=== PATIENT | female | born 1965 | race Caucasian/White ===

== ENCOUNTER → 2019-05-22 | Outpatient (CLI) | payer BC ==
[2019-05-22 15:47] LABS: POTASSIUM 3.4 mmol/L (3.5-5.1)
[2019-05-22 15:48] LABS: CALCIUM 9.8 mg/dL (8.3-10.5)
== END ==
LOC: RAD 15:00
PROVIDERS: Nurse Practitioner Family
DX: N32.89 Other specified disorders of bladder (principal); N28.9 Disorder of kidney and ureter, unspecified; M47.815 Spondylosis without myelopathy or radiculopathy, thoracolumbar region; M43.17 Spondylolisthesis, lumbosacral region; M47.816 Spondylosis without myelopathy or radiculopathy, lumbar region; M41.86 Other forms of scoliosis, lumbar region; K76.9 Liver disease, unspecified
CPT/HCPCS: Q9967

== ENCOUNTER → 2020-06-24 | Outpatient (CLI) | payer BC | LOC: RAD 06-23 07:00 | DX: M41.86 Other forms of scoliosis, lumbar region (principal); N28.1 Cyst of kidney, acquired; K76.89 Other specified diseases of liver | CPT/HCPCS: Q9967 ==

== ENCOUNTER → 2020-09-23 | Outpatient (CLI) | payer BC | LOC: RAD 13:24 | DX: M53.3 Sacrococcygeal disorders, not elsewhere classified (principal) ==